=== PATIENT | male | born 1995 | race African-American/Black ===

== ENCOUNTER 2019-10-17 16:12 | Emergency (ER) | payer MEDICAID ==
[~2019-10-17] VITALS: Ht 177.8 cm; Wt 68.0 kg
[2019-10-17] MEDS ORDERED: TETANUS, DIPHTHERIA, PERTUSSIS VAC/PF 0.5ML (>7YR OLD) IM ONE (16:45)
[2019-10-17] MEDS ORDERED: IBUPROFEN 600MG TABLET PO ONE (16:45)
[2019-10-17 16:47] VITALS: BP 121/99
[2019-10-17] MEDS ORDERED: CEPHALEXIN 250MG CAPSULE PO ONE (17:30)
== END 2019-10-17 17:48 | disposition home or self-care (01) ==
LOC: ER 16:12
DX: S91.332A Puncture wound without foreign body, left foot, initial encounter (principal); L03.116 Cellulitis of left lower limb; X99.9XXA Assault by unspecified sharp object, initial encounter; Y93.89 Activity, other specified; Y92.89 Other specified places as the place of occurrence of the external cause
CPT/HCPCS: 73610; 73630; 90471; 90715; 99284